=== PATIENT | female | born 1975 | race African-American/Black ===

== ENCOUNTER 2016-12-14 17:41 | Emergency (ER) | payer BC, OTHER ==
[~2016-12-14] VITALS: Ht 172.7 cm; Wt 75.2 kg
[2016-12-14 17:46] VITALS: TEMP 37; Ht 172.7 cm; Wt 75.2 kg
[2016-12-14] MEDS ORDERED: IBUP200T80 PO (17:50)
[2016-12-14] MEDS ORDERED: FERR1TAB23 PO (17:50)
[2016-12-14] MEDS ORDERED: NEOM1SOL20 OTR (18:14)
[2016-12-14 18:23] VITALS: BP 149/89; PULSE 69; O2SAT 100
--- NOTE | 2016-12-14 18:33 | EMERGENCY ROOM VISIT NOTE ---
ED Visit Note First contact with patient: 17:52 CHIEF COMPLAINT: Right Earache HISTORY OF PRESENT ILLNESS: This 41-year-old female patient presents to the emergency department and states they have had a right sided earache 2 days. Patient states she was seen earlier today by an urgent care, and given a prescription for eardrops. She states when she went to [employer] to pick[employer]umper the prescription, she was told no pharmacy in the area had those drops. Patient states she then went home and took a nap, so when she awoke, she was unable to contact the pharmacy or urgent care because they were closed. Patient presents now for a different prescription for her ear infection, however is on certain what prescription was sent to begin with. The pain is moderate, and is gradually increasing. They have noticed swelling and tenderness around the ear canal and pain below the ear on the upper neck. The pain is rated as throbbing and 9/10. The patient has not been swimming recently. The patient denies a history of ear problems. The patient has not had other URI symptoms recently. The patient has not had a fever. The patient has taken 400 mg ibuprofen relief of the pain. REVIEW OF SYSTEMS: A 6 system review of systems was completed with positives and pertinent negatives listed in the HPI. ALLERGIES: Aspirin MEDICATIONS: None PMH: None SOCIAL HISTORY: Patient lives locally with her family. She denies alcohol, tobacco, drug use. PHYSICAL EXAM: Vital Signs: Reviewed Nurse's notes, vital signs stable. GENERAL : 41-year-old female, in no acute distress, non toxic in appearance, well developed, well nourished. SKIN: Normal. MOUTH: The pharynx is normal in appearance and the tonsils are not enlarged. The airway is patent. There are no exudates over the tonsils. EARS: The right external auditory canal is swollen and inflamed and there is positive tragal tenderness. There is purulent discharge in the ear canal. The tympanic membrane is visualized and pearly bull without erythema or bulging. The left tympanic membrane is pearly bull without erythema or bulging and the external auditory canal is clear. HEART: Regular rate and rhythm without murmurs gallops or rubs. LUNGS: Clear to auscultation bilaterally without wheezes, rales or rhonchi. No dullness to percussion. No accessory muscle use. No retractions. ED COURSE: I examined the patient as above. Provided patient with education on using eardrops. The patient was discharged home in stable condition. DIAGNOSIS: Acute right otitis externa DIFFERENTIAL DIAGNOSIS: Otitis media, acute sinusitis, TM perforation, Trauma, cranial nerve palsy, hearing loss, intracranial abscess, malignancy, [employer] syndrome, foreign body in ear canal and others. DISCHARGE INSTRUCTIONS & TREATMENT: Cortisporin otic drops, 4 in the ear canal 4 times a day for 5 - 7 days until the pain and swelling are gone. Tylenol or Motrin every 4 - 6 hours as instructed if needed for the pain. Follow up with your PCP in 2-3 days for recheck of today's condition. Problem List Medical Problems: (1) Anemia Status: Resolved (2) Dental abscess Status: Resolved (3) Dental abscess Status: Resolved (4) Lymphadenopathy Status: Resolved (5) No significant medical problems Status: Chronic (6) Pain, dental Status: Resolved (7) Sore throat Status: Resolved Surgical Problems: (1) No significant past surgical history Status: Chronic Current/Historical Medications Scheduled Ferrous Sulfate (Iron), 1 TAB PO DAILY Ibuprofen (Ibu-200), 2 TAB PO QID Allergies Coded Allergies: Aspirin (Verified Allergy, Unknown, Unknown, 12/14/16) Reported by PT Vital Signs Date Time Temp Pulse Resp B/P (MAP) Pulse Ox O2 Delivery O2 Flow Rate FiO2 12/14/16 17:46 37.0 69 20 149/89 100 Room Air Departure Information Impression Primary Impression: Otitis externa Dispostion Home / Self-Care Condition GOOD Prescriptions Ruwpqjtt-Fxxhsjggj-Zb (Otic) (CORTISPORIN) 1 Mary Lou Mary Lou 4 DROPS OTR QID for 7 Days, #1680 ML Prov: Serena Curtis, TIMOTHY 12/14/16 Referrals No Doctor, Assigned (PCP) Patient Instructions ED Otitis Externa, [facility] Additional Instructions Cortisporin otic drops, 4 in the ear canal 4 times a day for 5 - 7 days until the pain and swelling are gone. Tylenol 325 mg, 1-2 tablets, or motrin 200mg, 1 -2 tablets, every 4 - 6 hours if needed for the pain. Please follow-up with your PCP in 2-3 days for re-check of today's condition. Problem Qualifiers Primary Impression: Otitis externa Otitis externa type: unspecified type Chronicity: acute Laterality: right Qualified Codes: H60.501 - Unspecified acute noninfective otitis externa, right ear
[2016-12-15] MEDS ORDERED: AMOX500C3 PO (17:44)
== END 2016-12-14 18:24 | disposition home or self-care (01) ==
LOC: C.EDB 17:42 → C.EDD 18:24
DX: H60.501 Unspecified acute noninfective otitis externa, right ear (principal)

== ENCOUNTER 2016-12-15 15:54 | Emergency (ER) | payer BC ==
[~2016-12-15] VITALS: Ht 181.6 cm; Wt 75.9 kg
[~2016-12-15 15:54] MED LIST: FERR1TAB23 PO; IBUP200T80 PO; NEOM1SOL20 OTR
[2016-12-15 16:09] VITALS: BP 149/86; PULSE 67; TEMP 37.3; O2SAT 99; Ht 181.6 cm; Wt 75.9 kg
[2016-12-15] MEDS ORDERED: TRAMADOL HCL 50 MG TAB PO STA (16:32)
--- NOTE | 2016-12-15 16:32 | EMERGENCY ROOM VISIT NOTE ---
ED Visit Note First contact with patient: 16:15 CHIEF COMPLAINT: Right Otitis Externa, worsening pain HISTORY OF PRESENT ILLNESS: This 41-year-old female patient presents to the emergency department one day after diagnosis of otitis externa. Patient states she was seen in the emergency department yesterday by me, when she was diagnosed with an external ear infection. Patient states she has been taking 400 mg ibuprofen approximately every 6 hours, and has been using Cortisporin drops which were prescribed yesterday every 4 hours. The pain is now severe, and is gradually increasing. They continued to notice swelling and tenderness around the ear canal and pain below the ear on the upper neck. The patient does report potential pain radiating to the right lower back molar. The pain is rated as throbbing, sharp and 10/10. The patient has not been swimming recently. The patient denies a history of ear problems. The patient has not had other URI symptoms. The patient has not had a fever. The patient has taken ibuprofen 400mg this morning, without relief of the pain. REVIEW OF SYSTEMS: A 6 system review of systems was completed with positives and pertinent negatives listed in the HPI. ALLERGIES: Aspirin MEDICATIONS: Cortisporin, ibuprofen, iron supplement PMH: None SOCIAL HISTORY: Patient lives locally. She denies alcohol, drug, tobacco use. PHYSICAL EXAM: Vital Signs: Reviewed Nurse's notes, vital signs stable. GENERAL : Nxu-nrvj-olf female, in no acute distress, however appears in pain, non toxic in appearance, well developed, well nourished. SKIN: Normal. MOUTH: The pharynx is normal in appearance and the tonsils are not enlarged. The airway is patent. There are no exudates over the tonsils. Several dental caries noted throughout the mouth. EARS: The right external auditory canal is swollen and inflamed and there is positive tragal tenderness. There is purulent drainage and debris noted in the canal. The tympanic membrane is not well visualized. The left tympanic membrane is pearly bull without erythema or bulging and the external auditory canal is clear. HEART: Regular rate and rhythm without murmurs gallops or rubs. LUNGS: Clear to auscultation bilaterally without wheezes, rales or rhonchi. No dullness to percussion. No accessory muscle use. No retractions. ED COURSE: I examined the patient. The patient was given 50 mg tramadol by mouth. The patient became concerned regarding prescribed medications when she noticed that one medication was a steroid. She states she was told by Urgent Care that she should not take steroids. Pt. was then seen and evaluated by Dr. Malagon, who states he feels there may be some slight erythema and bulging at 3: 00 position of the TM. He recommended PO antibiotics in addition to drops. When she experienced some relief of her pain, a wick was easily placed in the right ear by myself. Cortisporin otic suspension 4 drops were placed in the right ear. The patient was discharged home in stable condition. DIAGNOSIS: Acute right otitis externa, acute right otitis media DIFFERENTIAL DIAGNOSIS: Viral URI, Viral otitis media, and others DISCHARGE INSTRUCTIONS & TREATMENT: Cortisporin otic drops, 4 in the ear canal 4 times a day for 5 - 7 days until the pain and swelling are gone. Continue using the drops I prescribed for yesterday. For pain control, you can use the following cyzo-urp-ginlirn medicines (if >12 yo): - Regular strength (325mg/tab) Tylenol (acetaminophen) 2 tabs every 4-6 hours as needed. Do not exceed 12 tablets in a 24 hour period. Avoid taking more than 4 grams (4000 mg) of Tylenol per day. This includes any other sources of acetaminophen you may take on a regular basis. - Regular strength (200 mg/tab) Advil (ibuprofen) 1-2 tabs every 4-6 hours as needed. Do not exceed a dose of 3200 mg per day. - You may alternate these medications every 3 hours. You have been prescribed Tramadol to be used for pain control. Take 1 tablet every 4-6 hours as needed for pain. This is a narcotic medication. You cannot drive or consume alcohol while on this medicine. This medicine should only be used for pain that cannot be controlled with dbxt-oty-zeopvih pain medicines. You have been prescribed amoxicillin to be taken 2 tablets 3 times daily. This is the antibiotic, and he should take the entire course as prescribed until all pills are gone. All antibiotics have the potential to cause diarrhea. You should consider taking a probiotic while on this antibiotic. If you experience difficulty breathing, chest pain, swelling of her face, or other associated symptoms, you should return to the emergency department for further evaluation and treatment. Follow-up tomorrow with your PCP or here to have the wick removed from her ear. Be sure to follow up with your PCP regardless in 2-3 days. Problem List Medical Problems: (1) Anemia Status: Resolved (2) Dental abscess Status: Resolved (3) Dental abscess Status: Resolved (4) Lymphadenopathy Status: Resolved (5) No significant medical problems Status: Chronic (6) Pain, dental Status: Resolved (7) Sore throat Status: Resolved Surgical Problems: (1) No significant past surgical history Status: Chronic Current/Historical Medications Scheduled Amoxicillin (Amoxil), 1,000 MG PO TID Ferrous Sulfate (Iron), 1 TAB PO DAILY Ibuprofen (Ibu-200), 2 TAB PO QID Yofoqrmd-Jmxhlqkwz-Qm (Otic) (Cortisporin), 4 DROPS OTR QID Allergies Coded Allergies: Aspirin (Verified Allergy, Unknown, Unknown, 12/15/16) Reported by PT Vital Signs Date Time Temp Pulse Resp B/P (MAP) Pulse Ox O2 Delivery O2 Flow Rate FiO2 12/15/16 16:09 37.3 67 18 149/86 99 Room Air Medications Administered Medications (Trade) Dose Ordered Sig/Jeff Route Start Time Stop Time Status Last Admin Dose Admin Tramadol HCl (Ultram Tab) 50 mg NOW STAT PO 12/15/16 16:32 12/15/16 16:33 DC 12/15/16 16:40 50 MG Tramadol HCl (Ultram Home Pack) 1 homepack UD PRN PO 12/15/16 17:15 12/15/16 18:01 DC 12/15/16 17:55 1 HOMEPACK Amoxicillin (Amoxil Cap) 1,000 mg NOW STAT PO 12/15/16 17:45 12/15/16 17:47 DC 12/15/16 17:45 1,000 MG Departure Information Impression Primary Impression: Otitis externa Dispostion Home / Self-Care Condition GOOD Prescriptions Amoxicillin (AMOXIL) 500 Mg Cap 1000 MG PO TID for 10 Days, #60 CAP Prov: Serena Curtis PA-C 12/15/16 Referrals No Doctor, Assigned (PCP) Patient Instructions [facility] Additional Instructions Cortisporin otic drops, 4 in the ear canal 4 times a day for 5 - 7 days until the pain and swelling are gone. Continue using the drops I prescribed for yesterday. You were prescribed amoxicillin to be taken 2 tabs, 3 times per day. This is an antibiotic. All antibiotics have the potential to cause diarrhea. Stop this medication and contact a medical provider if you were to develop any significant adverse side effects including: wheezing, shortness of breath, passing out, vomiting, or a diffuse rash. Always take antibiotics as directed and COMPLETE the ENTIRE course regardless of the improvement of your symptoms. For pain control, you can use the following kwgu-cjc-zfqzkyi medicines (if >12 yo): - Extra strength (500mg/tab) Tylenol (acetaminophen) 2 tabs every 6 hours as needed. Do not exceed 8 tablets in a 24 hour period. Avoid taking more than 4 grams (4000 mg) of Tylenol per day. This includes any other sources of acetaminophen you may take on a regular basis. - Regular strength (200 mg/tab) Advil (ibuprofen) 2-3 tabs every 6 hours as needed. Do not exceed a dose of 3200 mg per day. - You may alternate these medications every 3 hours. You have been prescribed Tramadol to be used for pain control. Take 1 tablet every 4-6 hours as needed for pain. This is a narcotic medication. You cannot drive or consume alcohol while on this medicine. This medicine should only be used for pain that cannot be controlled with arsc-gbh-yxduvqz pain medicines. Follow-up tomorrow with your PCP or here to have the wick removed from her ear. Be sure to follow up with your PCP regardless in 2-3 days. Problem Qualifiers Primary Impression: Otitis externa Otitis externa type: unspecified type Chronicity: acute Laterality: right Qualified Codes: H60.501 - Unspecified acute noninfective otitis externa, right ear
[2016-12-15] MEDS ORDERED: TRAMADOL HCL 50 MG HOME PACK PO PRN (17:15)
[2016-12-15] MEDS ORDERED: AMOX500C3 PO (17:44)
[2016-12-15] MEDS ORDERED: AMOXICILLIN 500 MG CAP PO STA (17:45)
[2016-12-15] MEDS ORDERED: AMOXICILLIN 250 MG CAP PO ONE (17:50)
== END 2016-12-15 17:58 | disposition home or self-care (01) ==
LOC: C.EDB 15:55 → C.EDD 17:58
DX: H60.501 Unspecified acute noninfective otitis externa, right ear (principal); H66.91 Otitis media, unspecified, right ear